=== PATIENT | female | born 1955 | race Caucasian/White ===

== ENCOUNTER → 2018-05-31 08:01 | Outpatient (CLI) | payer OTHER, SELFPAY ==
--- NOTE | 2018-05-31 08:20 | BI_ITS ---
MAMMOGRAPHY - BILATERAL SCREENING REASON FOR EXAM: Female, 62 years old. Routine annual screening examination. PERTINENT HISTORY: Non-contributory. TECHNIQUE: Digital bilateral breast justino (3D mammographic acquisition) in the CC and MLO projections. 2-D mediolateral oblique (MLO) and craniocaudad (CC) views of both breasts were obtained. CAD: Full Field Digital Mammography with Computer Added Detection was performed. COMPARISON: Comparison is made with prior study dated December 18, 2012 and May 08, 2011. FINDINGS: Breast Composition: There are scattered areas of fibroglandular density. There are no dominant masses or suspicious calcifications. There are several tiny well-defined nodular densities in the left breast. These may represent tiny cysts. Correlation with ultrasound is recommended. No other significant abnormalities are identified. Stable appearance of the small bilateral axillary lymph nodes. BI/SCREENING MAMM (CAD), BILAT IMPRESSION: Multiple tiny well-defined nodular densities in the right breast. These may represent tiny cysts. Correlation with ultrasound is recommended. ASSESSMENT CATEGORY: BIRADS Category 0: Incomplete. Need additional imaging evaluation. A letter regarding these results will be sent to the patient by the facility within 30 days. Approximately 10% of breast cancers are not detected by mammography. A normal mammogram should not delay biopsy of a clinically suspicious abnormality. [id number] Electronically Signed: Terrence Echols MD at 8:59 EDT Tel [phone], Service support ,
== END ==
PROVIDERS: Family Provider Internal Medicine; PCP Internal Medicine; Visit Provider Internal Medicine
DX: Z12.31 Encounter for screening mammogram for malignant neoplasm of breast (principal)
CPT/HCPCS: 77063; 77067

== ENCOUNTER → 2018-06-06 07:56 | Outpatient (CLI) | payer OTHER, SELFPAY ==
--- NOTE | 2018-06-06 07:59 | US_ITS ---
STUDY: ULTRASOUND BREAST - RIGHT REASON FOR EXAM: Female, 62 years old. Abnormal screening mammogram. TECHNIQUE: Axial and longitudinal images of the RIGHT breast were performed with a high resolution ultrasound transducer. COMPARISON: Comparison is made with prior mammogram dated May 31, 2018. FINDINGS: RIGHT Breast: There is a 2 mm x 3 mm x 2 mm cyst at the 9:00 position approximately 3 cm from the nipple. Normal fibroglandular tissue. US/Breast Limited Unilateral IMPRESSION: 2 mm x 3 mm x 2 mm cyst at the 9:00 position of the breast at 3 cm in the nipple. Routine mammographic follow-up is recommended. ASSESSMENT CATEGORY: BIRADS Category 2: Benign. A letter regarding these results will be sent to the patient by the facility within 30 days. Electronically Signed: Terrence Echols MD at 8:47 EDT Tel [phone], Service support ,
== END ==
LOC: OPUS 07:58
PROVIDERS: Family Provider Internal Medicine; PCP Internal Medicine; Visit Provider Internal Medicine
DX: N63.10 Unspecified lump in the right breast, unspecified quadrant (principal); R92.8 Other abnormal and inconclusive findings on diagnostic imaging of breast
CPT/HCPCS: 76642

== ENCOUNTER 2021-02-03 08:54 | Outpatient (RCR) | payer MEDICARE, SELFPAY ==
[2021-02-03] MEDS: COVID-19 VACC, MRNA(PFIZER)/PF 30 MCG/0.3 ML SYRINGE IM (14:00)
[2021-02-24] MEDS: COVID-19 VACC, MRNA(PFIZER)/PF 30 MCG/0.3 ML SYRINGE IM (15:27)
== END 2021-04-25 23:59 ==
LOC: IMMUN 08:54
PROVIDERS: PCP Internal Medicine; Referring Provider Family Medicine; Visit Provider Family Medicine
DX: Z23 Encounter for immunization (principal)
CPT/HCPCS: 0001A; 0002A; 91300

== ENCOUNTER 2023-07-23 12:10 | Emergency (ER) | payer MEDICARE, SELFPAY ==
[2023-07-23 12:12] VITALS: BP 171/84; PULSE 82; RESP 14; TEMP 37.2; O2SAT 98; BMI 25.2
[2023-07-23 12:34] VITALS: BP 146/89; PULSE 79; RESP 13
--- NOTE | 2023-07-23 13:07 | EKG12_ITS ---
Test Reason : SOB Blood Pressure : / mmHG Vent. Rate : 073 BPM Atrial Rate : 073 BPM P-R Int : 120 ms QRS Dur : 086 ms QT Int : 370 ms P-R-T Axes : 065 026 051 degrees QTc Int : 407 ms Normal sinus rhythm Normal ECG Confirmed by CARMELITA RUIZ, KAYLIN ([id number]), film editor supervisor LORNE YANG ([id number]) on 07/26/2023 11:19:52 AM Referred By: Confirmed By:KAYLIN MAE MD
--- NOTE | 2023-07-23 13:08 | EX.ED.DYSGE1 ---
HPI History of Present Illness Chief Complaint: Nausea/Vomiting/Diarrhea Informant: patient Narrative Narrative: Presents for 5-day history of vomiting diarrhea. Both started 5 days ago. No recent antibiotics. No sick contacts. Lives alone. States watery liquid stools nonbloody. Now dry heaving. No abdominal pain. No fevers. States 5 days ago during vomiting diarrhea had a syncopal episode hitting her head. No current headaches. No anticoagulants. Try to keep up with fluids. Prior similar symptoms: No PFSH PFSH Medical History Anxiety Depression HTN (hypertension) Home Medications ondansetron 4 mg disintegrating tablet 4 mg PO Q8H PRN PRN Nausea #10 tabs 07/23/23 [Rx Last Taken Unknown] Allergy/AdvReac Type Severity Reaction Status Date / Time Sulfa (Sulfonamide Allergy Unknown Verified 07/23/23 12:11 Antibiotics) codeine AdvReac Vomiting Verified 07/23/23 12:11 Family History Father Hypertension Brother Diabetes Surgical History History of back surgery History of hysterectomy Social History household members: none housing: house Smoking Status: Never smoker ROS ROS ED Constitutional Constitutional ED: Denies chills, fever(s) or sweats Eyes Eyes: Denies change in vision ENT ENT ED: Denies dysphagia or sore throat Cardiovascular Cardiovascular: Denies chest pain, leg edema, palpitations or racing heartbeat Respiratory/Chest Respiratory/Chest: Denies cough, dyspnea or dyspnea on exertion Gastrointestinal Gastrointestinal: Reports diarrhea, nausea and vomiting; Denies abdominal pain Genitourinary Genitourinary ED: Denies dysuria, hematuria or urinary frequency Musculoskeletal Musculoskeletal: Denies back pain, extremity pain or neck pain Integumentary Denies rash or wounds Neurologic Neurologic: Denies headache(s), paresthesias or weakness EXAM Physical Exam Const Vital Signs: 07/23/23 12:12 07/23/23 12:34 07/23/23 14:59 Temperature 99 F Temperature Source Temporal Pulse Rate 82 79 78 Respiratory Rate 14 13 19 H Blood Pressure 171/84 H 146/89 H 157/78 H Blood Pressure Mean 113 108 104 Pulse Ox 98 97 Oxygen Delivery Method Room Air Room Air Positive well nourished and well developed General Appearance ED: well developed and NAD HEENT Reports dry mucous membranes normocephalic and atraumatic Mouth ED: Yes dry mucous membranes Mouth: dry mucous membranes Eyes PERRL, EOMs intact bilaterally and conjunctivae normal General Eye ED: Yes normal appearance of both eyes Neck no lymphadenopathy and supple General: Negative for tenderness Chest Wall Chest: Negative for tenderness Resp normal respiratory effort and normal air movement Effort and Inspection: symmetric chest movement; Negative for respiratory distress Cardio regular rate, regular rhythm and no murmurs Peripheral Pulses: pulses 2+ throughout GI normal to inspection, nondistended, normoactive bowel sounds and non-tender GI Narrative: Negative Gonsales's or McBurney's tenderness. No left lower quadrant tenderness. Palpation: Negative for guarding or rebound tenderness present Back/Spine no CVA tenderness and no thoracic nor lumbar tenderness Extremity normal to inspection General Extremety ED: Negative for edema or tenderness General Extremity: Negative for edema Neuro oriented x3 and no sensory deficits noted Sensorium / Orientation: awake and alert Skin no rashes or lesions noted and no wounds MDM MDM MDM Narrative Medical decision making narrative: Interventions / MDM: Differential diagnosis: C. difficile, diarrhea, electrolyte abnormalities Diagnosis considered but do not suspect: No clinical colitis My EKG interpretation: Sinus rate of 73, no ST or T wave changes QTc 407. Imaging independently reviewed and interpreted by myself: N/A External documents reviewed: N/A Test considered but not ordered:N/A ED course: Patient slight dry mucosal membranes on exam with diarrhea persist for 5 days. Laboratory studies obtained fluids given. Stool studies were ordered for further evaluation. She is treated with Zofran. 1555: Patient is unable to provide stool sample labs stable slight renal insufficient creatinine 1.14 compared to previous. Electrolytes normal. She is tolerating oral fluids. Prescription for Zofran sent to her pharmacy, she will continue oral fluids. Plan discharge with outpatient follow-up. Re-evaluation: stable Disposition discussed with patient/family/significant other: Patient Case discussed with consulting clinician: N/A This note was generated with [employer] dictation software. It may contain incorrect words, spelling, and punctuation that were not noted in checking the note before signing. Lab Data Attestation: I reviewed the patient's lab results. Labs: Laboratory Results - last 24 hr 07/23/23 12:45 WBC 8.3 RBC 5.13 Hgb 14.7 Hct 43.3 MCV 84.4 MCH 28.7 MCHC 33.9 RDW Std Deviation 37.1 RDW Coeff of Nohelia 12.1 Plt Count 344 MPV 9.6 Immature Gran % (Auto) 4.800 H Neut % (Auto) 57.5 Lymph % (Auto) 25.2 [place] % (Auto) 11.3 H Eos % (Auto) 0.8 Baso % (Auto) 0.4 Absolute Neuts (auto) 4.8 Absolute Lymphs (auto) 2.10 Nucleated RBC % 0 Sodium 136 Potassium 3.7 Chloride 103 Carbon Dioxide 25.0 Anion Gap 8 BUN 22 H Creatinine 1.14 H Estim Creat Clear Calc 43.37 Est GFR (MDRD) Af Amer 61 Est GFR (MDRD) Non-Af 51 L BUN/Creatinine Ratio 19.3 Glucose 102 Calcium 9.2 Magnesium 2.3 Discharge Plan Triage Chief Complaint: Nausea/Vomiting/Diarrhea ED Provider: Jenaro Costa Dx/Rx/DC Orders Clinical Impression: Diarrhea, Syncope, Dehydration Instructions: Dehydration, ED Diarrhea, Unknown Cause Prescriptions: New ondansetron [ondansetron] 4 mg tablet,disintegrating 4 mg PO Q8H PRN PRN (Reason: Nausea) Qty: 10 0RF Primary Care Provider: Cesar Benitez Referrals: Emily Calabrese DO [Med Staff - Client Services Coordinator] - Activity Restrictions/Additional Instructions: Labs are stable, clinical dehydration creatinine 1.14. Continue oral fluids. Use Zofran as needed. Follow-up with your doctor. Return if worsening symptoms. Disposition Disposition: Home, Self Care
[2023-07-23 13:20] LABS: Absolute Neutrophil Count 4.8 X10^3/uL (2.0-7.7); Basophil# 0.03 X10^3/uL; Basophil% 0.4 % (0-1); Eosinophil# 0.07 X10^3/uL; Eosinophils% 0.8 % (0-5); Hematocrit 43.3 % (37-47); Hemoglobin 14.7 g/dL (12.0-15.0); Lymphocyte % 25.2 % (19-41); Mean Corp Hgb Conc 33.9 g/dL (32-36); Mean Corpuscular Hgb 28.7 pg (27.0-32.0); Mean Corpuscular Volume 84.4 fL (81-99); Mean Platelet Vol. 9.6 fl (6.2-12.0); Monocyte# 0.94 X10^3/uL; Monocyte% 11.3 % (0-10); NRBC Flagged by Analyzer 0 % (0-5); Neutrophil # 4.78 X10^3/uL (2.7-7.7); Neutrophil % 57.5 % (47-70); POSITIVE MORPHOLOGY YES; Platelet Count 344 K/mm3 (150-450); RBC Distribution Width CV 12.1 % (11.6-14.6); RBC Distribution Width SD 37.1 fl (35.1-43.9); Red Blood Count 5.13 M/mm3 (4.2-5.4); White Blood Count 8.3 K/mm3 (4.4-11.0)
[2023-07-23 13:22] LABS: Differential Indicated SCAN CRITERIA MET
[2023-07-23] MEDS: Ondansetron 4 MG/2 ML Vial IV (13:22)
[2023-07-23 13:33] LABS: Anion Gap 8 (5-15); BUN 22 mg/dL (7-18); BUN/Creat Ratio 19.3 RATIO (10-20); Calcium,Total 9.2 mg/dL (8.5-10.1); Chloride 103 mmol/L (98-107); Creatinine, Serum 1.14 mg/dL (0.55-1.02); EST Glomerular Filtration Rate 51 mL/min (>60); Est Glom Filt Rate - Afr Amer 61 mL/min (>60); Estimated Creatinine Clearance 43.37 ml/min; Glucose 102 mg/dL (74-106); Magnesium 2.3 mg/dL (1.6-2.6); Potassium 3.7 mmol/L (3.5-5.1); Sodium Level 136 mmol/L (136-145)
[2023-07-23 14:59] VITALS: BP 157/78; PULSE 78; RESP 19; O2SAT 97
[2023-07-23 16:03] VITALS: RESP 16
== END 2023-07-23 16:05 | disposition home or self-care (01) ==
PROVIDERS: Emergency Provider Emergency Medicine; PCP Student in an Organized Health Care Education/Training Program; Visit Provider Emergency Medicine
DX: E86.0 Dehydration (principal); R19.7 Diarrhea, unspecified; R55 Syncope and collapse; I10 Essential (primary) hypertension; Z79.899 Other long term (current) drug therapy
CPT/HCPCS: 80048; 83735; 85025; 93005; 96361; 96374; 99283; J7030; A4216; J2405

== ENCOUNTER 2025-05-12 09:30 | Emergency (ER) | payer MEDICARE, SELFPAY ==
[2025-05-12] VITALS (17 sets, daily range): BP systolic 115–156; BP diastolic 62–95; PULSE 67–85; RESP 9–24; TEMP 36.2–37.1; O2SAT 97–100; BMI 26.4
--- NOTE | 2025-05-12 10:13 | EX.ED.DYSGE1 ---
HPI History of Present Illness Chief Complaint: Dizziness Narrative Narrative: 69-year-old female presents with her brother because of nausea and vomiting, and dizziness as well as headache that she has had since yesterday. She relates history that she had a colonoscopy performed yesterday by Dr. Suh. She had polyps removed. She states over the last 24 hours, she has vomited 3 or 4 times without any blood in her emesis, and feels very nauseated and dizzy like the room is spinning whenever she moves her head or tries to sit up. Of note, she states that she removed her make-up and noticed that she had a left black eye. She also noticed a bump on the back of her head more towards the right occiput. She does not remember falling, but she lives at home with her brother who told her that she had fallen after the colonoscopy. [facility] Medical History Depression Anxiety HTN (hypertension) Home Medications ?Medication ?Instructions ?Recorded ?Last Taken ?Type rabeprazole 20 mg tablet,delayed 20 mg PO DAILY 05/12/25 05/05/25 History release Allergy/AdvReac Type Severity Reaction Status Date / Time Sulfa (Sulfonamide Allergy Unknown Verified 05/12/25 09:30 Antibiotics) codeine AdvReac Vomiting Verified 05/12/25 09:30 Family History Father Hypertension Brother Diabetes Surgical History History of hysterectomy History of back surgery Social History household members: none housing: house Smoking Status: Never smoker ROS ROS ED ROS Narrative Review of systems positive for left eye periorbital ecchymosis, tenderness of scalp on right occiput. Positive dizziness with nausea and vomiting. Positive headache. Denies neck pain. No paresthesias. No fevers or chills. EXAM Physical Exam Narrative Exam Narrative: GCS 15. ABCs intact. Mild tenderness palpation right occiput, no crepitance. Neck soft and supple without meningismus. No vertebral point tenderness or bony step-off. Full range of motion without pain. PERRL, EOMI. Positive periorbital ecchymosis left eye. Cardiovascular examination regular rate and rhythm. Lungs clear to auscultation bilaterally. Abdomen is soft and nontender with normoactive bowel sounds. Neurological examination nonfocal, nonlateralizing. Cerebellar functioning normal as tested. Patellar DTRs equal and symmetric. Able to raise arms above head without difficulty. Moves all extremities. Awake, alert, interactive. Answering questions appropriately. No pedal edema bilaterally appreciated. Const Vital Signs: 05/12/25 09:30 05/12/25 11:39 05/12/25 12:00 Temperature 97.1 F L Temperature Source Temporal Pulse Rate 72 82 82 Respiratory Rate 16 14 19 H Blood Pressure 156/74 H 128/95 H 148/76 H Blood Pressure Mean 101 106 100 Pulse Ox 99 100 100 Oxygen Delivery Method Room Air Room Air Room Air 05/12/25 12:02 05/12/25 12:15 05/12/25 12:20 Temperature Temperature Source Pulse Rate 85 78 78 Respiratory Rate 14 9 L 12 Blood Pressure 154/82 H Blood Pressure Mean 105 Pulse Ox 100 100 Oxygen Delivery Method 05/12/25 12:30 05/12/25 12:45 05/12/25 13:00 Temperature Temperature Source Pulse Rate 76 72 75 Respiratory Rate 16 15 13 Blood Pressure 142/73 H Blood Pressure Mean 92 Pulse Ox 100 98 97 Oxygen Delivery Method Room Air 05/12/25 13:15 05/12/25 13:28 05/12/25 13:30 Temperature 98.7 F Temperature Source Pulse Rate 67 79 78 Respiratory Rate 14 19 H 18 Blood Pressure 142/73 H 135/70 H Blood Pressure Mean 96 91 Pulse Ox 97 99 98 Oxygen Delivery Method 05/12/25 13:45 05/12/25 14:00 05/12/25 14:15 Temperature Temperature Source Pulse Rate 72 71 72 Respiratory Rate 15 15 13 Blood Pressure 115/62 Blood Pressure Mean 79 Pulse Ox 99 99 98 Oxygen Delivery Method Room Air 05/12/25 14:30 Temperature Temperature Source Pulse Rate 72 Respiratory Rate 24 H Blood Pressure Blood Pressure Mean Pulse Ox 98 Oxygen Delivery Method MDM MDM MDM Narrative Medical decision making narrative: Differential diagnosis includes but not limited to cerebellar stroke versus closed head injury versus dehydration versus other electrolyte abnormality versus benign positional vertigo versus intracranial hemorrhage. I reviewed her laboratory work and she has slight elevation of her white count of 12.9 which I think is nonspecific with hemoglobin normal at 14.2, hematocrit 42.9, platelet count normal at 279. BMP is remarkable for glucose of 124 but electrolytes otherwise unremarkable. No dehydration with a BUN of 14 and creatinine normal at 0.76. I reviewed the radiology report of the CT of the brain and of the C-spine. While the C-spine CT shows no evidence of acute fracture, there is DJD. Review of the CT of the brain does show heterogeneous hemorrhagic contusion of the left frontal lobe with surrounding edema. I did add coagulation studies which show an INR normal at 1.0 with a PTT 23.6. Patient requested [facility] for transfer as she is still having continued dizziness. I do feel she will require at least observation for her traumatic head injury and cerebral contusion. I discussed patient with Dr. Cornejo with emergency medicine who requested that I speak with neurosurgery. I then discussed the patient with Dr. Medel with neurosurgery who finds it acceptable that she could be transferred ED to ED. Patient will be transferred in stable condition. History & Record Review Discussion w/independent historian: Patient Lab Data Attestation: I reviewed the patient's lab results. Labs: Laboratory Results - last 24 hr 05/12/25 05/12/25 10:25 12:32 WBC 12.9 H RBC 4.91 Hgb 14.2 Hct 42.9 MCV 87.4 MCH 28.9 MCHC 33.1 RDW Std Deviation 41.4 RDW Coeff of Nohelia 12.8 Plt Count 279 MPV 9.9 Immature Gran % (Auto) 0.300 Neut % (Auto) 84.1 H Lymph % (Auto) 10.2 L [place] % (Auto) 5.1 Eos % (Auto) 0.1 Baso % (Auto) 0.2 Absolute Neuts (auto) 10.8 H Absolute Lymphs (auto) 1.31 Nucleated RBC % 0 PT 13.3 INR 1.0 APTT 23.6 L Sodium 142 Potassium 3.7 Chloride 105 Carbon Dioxide 25.5 Anion Gap 11 BUN 14 Creatinine 0.76 Est GFR (MDRD) Non-Af 85 BUN/Creatinine Ratio 18.7 Glucose 124 H Calcium 9.7 Radiography Diagnostic Testing: Clinical Impression(s) from Imaging Studies Brain CT 05/12/25 10:51 IMPRESSION: Heterogeneous hemorrhagic contusion in the anterior left frontal lobe with surrounding edema. Reading Location: [id number] Cervical Spine CT 05/12/25 10:51 IMPRESSION: DEGENERATIVE CHANGES OF THE CERVICAL SPINE. NO EVIDENCE OF SIGNIFICANT OSSEOUS CENTRAL CANAL OR NEURAL FORAMINAL STENOSIS. Reading Location: [facility] Management Discussion w/another healthcare provider: Video Rental Clerk (Dr. Cornejo with the emergency medicine, and Dr. Medel withneurosurgery) Discharge Plan Triage Chief Complaint: Dizziness ED Provider: Ramiro Avila Dx/Rx/DC Orders Clinical Impression: Brain contusion, Fall, Dizziness, Periorbital ecchymosis of left eye Prescriptions: No Action rabeprazole 20 mg tablet,delayed release (DR/EC) 20 mg PO DAILY Patient Comments: PT TAKES NEEDED Primary Care Provider: Cesar Benitez Referrals: Ceasr Benitez DO [Primary Care Provider] - Print Language: Japanese Disposition Disposition: Acute Care Hospital Discharge Location: [facility]
[2025-05-12 10:38] LABS: Absolute Lymphocyte Count 1.31 X10^3/uL (0.83-4.51); Absolute Neutrophil Count 10.8 X10^3/uL (2.0-7.7); Basophil# 0.03 X10^3/uL; Basophil% 0.2 % (0-1); Eosinophil# 0.01 X10^3/uL; Eosinophils% 0.1 % (0-5); Hematocrit 42.9 % (37-47); Hemoglobin 14.2 g/dL (12.0-15.0); Lymphocyte # 1.31 X10^3/ul (0.83-4.51); Lymphocyte % 10.2 % (19-41); Mean Corp Hgb Conc 33.1 g/dL (32-36); Mean Corpuscular Hgb 28.9 pg (27.0-32.0); Mean Corpuscular Volume 87.4 fL (81-99); Mean Platelet Vol. 9.9 fl (6.2-12.0); Monocyte# 0.65 X10^3/uL; Monocyte% 5.1 % (0-10); NRBC Flagged by Analyzer 0 % (0-5); Neutrophil # 10.83 X10^3/uL (2.7-7.7); Neutrophil % 84.1 % (47-70); Platelet Count 279 K/mm3 (150-450); RBC Distribution Width CV 12.8 % (11.6-14.6); RBC Distribution Width SD 41.4 fl (35.1-43.9); Red Blood Count 4.91 M/mm3 (4.2-5.4); White Blood Count 12.9 K/mm3 (4.4-11.0)
[2025-05-12] MEDS: Ondansetron 4 MG/2 ML Vial IV (10:43)
[2025-05-12] MEDS: 0.9% Normal Saline (1000mL) 1,000 ML 999 ML IV (10:43)
--- NOTE | 2025-05-12 10:51 | CT_ITS ---
PROCEDURE: SPINE CERVICAL WITHOUT CONTRAS 05/12/2025 REASON FOR EXAM: TRAUMA TECHNIQUE: SPINE CERVICAL WITHOUT CONTRAS Coronal and Sagittal reconstruction series were provided. CONTRAST: None One or more dose reduction techniques were used (e.g., Automated exposure control, adjustment of the mA and/or kV according to patient size, use of iterative reconstruction technique. RADIATION DOSE SUMMARY: CTDlvol: 16.41 mGy DLP: 268.92 mGycm COMPARISON: None FINDINGS: Alignment: Straightening of the normal cervical lordosis. Vertebrae: Minimal anterior spondylosis at the C4-C5 and C5-C6 levels. Soft Tissues: Unremarkable Other: C1-2: Unremarkable C2-3: Mild facet joint osteoarthritis and hypertrophy on the right side. C3-4: Facet joint osteoarthritis and hypertrophy. No significant stenosis seen. C4-5: Minimal anterior spondylosis. Uncovertebral arthrosis. Bilateral neural foraminal stenosis worse on the right side. C5-6: Uncovertebral arthrosis. Bilateral neural foraminal stenosis worse on the right side. C6-7: Mild degree of disc space narrowing. No significant abnormality is seen. C7-T1: No significant abnormality is seen. CT/Spine Cervical without Contras IMPRESSION: DEGENERATIVE CHANGES OF THE CERVICAL SPINE. NO EVIDENCE OF SIGNIFICANT OSSEOUS CENTRAL CANAL OR NEURAL FORAMINAL STENOSIS. Reading Location: [id number]
--- NOTE | 2025-05-12 10:51 | CT_ITS ---
PROCEDURE: BRAIN/HEAD WITHOUT CONTRAST 05/12/2025 REASON FOR EXAM: TRAUMA TECHNIQUE: BRAIN/HEAD WITHOUT CONTRAST Coronal and Sagittal reconstruction series were provided. One or more dose reduction techniques were used (e.g., Automated exposure control, adjustment of the mA and/or kV according to patient size, use of iterative reconstruction technique. RADIATION DOSE SUMMARY: CTDlvol: 47.06 mGy DLP: 855.03 mGycm COMPARISON: None FINDINGS: Brain: Focal heterogeneous hemorrhagic contusion overlying the anterior aspect of the left frontal lobe with surrounding edema. CSF Spaces: Mild generalized cerebral atrophy Sinuses/Mastoids: Clear at visualized levels Bones: Hyperostosis frontalis interna CT/Brain/Head without Contrast IMPRESSION: Heterogeneous hemorrhagic contusion in the anterior left frontal lobe with surr ounding edema. Reading Location: [id number]
[2025-05-12 11:01] LABS: Anion Gap 11 (5-15); BUN 14 mg/dL (4-19); BUN/Creat Ratio 18.7 RATIO (10-20); Calcium,Total 9.7 mg/dL (7.6-11.0); Carbon Dioxide 25.5 mmol/L (21.0-32.0); Chloride 105 mmol/L (98-108); Creatinine, Serum 0.76 mg/dL (0.70-1.20); EST Glomerular Filtration Rate 85 (>60); Glucose 124 mg/dL (70-99); Potassium 3.7 mmol/L (3.3-5.1); Sodium Level 142 mmol/L (133-145)
[2025-05-12 13:01] LABS: Prothrombin Time (Protime)PT. 13.3 SECONDS (11.7-14.9)
[2025-05-12 13:02] LABS: Partial Thromboplast Time 23.6 Seconds (24.1-36.2)
--- NOTE | 2025-05-12 13:45 | ED.RN ---
REPORT CALLED TO [facility] NURSE PATRICK AT THIS TIME.
== END 2025-05-12 15:12 | disposition short-term general hospital (02) ==
PROVIDERS: Emergency Provider Emergency Medicine; PCP Student in an Organized Health Care Education/Training Program; Visit Provider Emergency Medicine
DX: S06.2XAA Diffuse traumatic brain injury with loss of consciousness status unknown, initial encounter (principal); S05.12XA Contusion of eyeball and orbital tissues, left eye, initial encounter; I10 Essential (primary) hypertension; W19.XXXA Unspecified fall, initial encounter
CPT/HCPCS: 70450; 72125; 80048; 85025; 85610; 85730; 93005; 96361; 96374; 99284; A4216; J2405